=== PATIENT | male | born 1935 | race Hispanic/Latino ===

== ENCOUNTER → 2020-12-04 | Outpatient (CLI) | payer MEDICARE | LOC: RAD 16:21 | PROVIDERS: ATTEND Family Medicine | DX: M54.5 Low back pain (principal) | CPT/HCPCS: 72100 ==

== ENCOUNTER → 2024-02-18 | Day surgery (SDC) | payer MEDICARE ==
[2024-02-16 11:33] LABS: BASOPHILS % 0.2 % (0.0-1.0); EOSINOPHILS # (AUTO) 0.1 (0.0-0.4); HEMATOCRIT 31.8 % (38.2-49.6); HEMOGLOBIN 10.1 g/dL (14.0-18.0); LYMPHOCYTES # (AUTO) 1.5 (1.0-3.2); LYMPHOCYTES % 29.8 % (18.0-39.1); MEAN CORPUSCULAR HEMOGLOBIN 33.1 pg (28-32); MEAN CORPUSCULAR HGB CONC 31.8 g/dL (31-35); MEAN CORPUSCULAR VOLUME 104.3 fL (81-99); MONOCYTES # (AUTO) 0.5 (0.2-0.8); MONOCYTES % 9.2 % (4.4-11.3); NEUTROPHILS # (AUTO) 2.9 (2.1-6.9); NEUTROPHILS % 58.4 % (38.7-80.0); PLATELET COUNT 211 x10e3/uL (140-360); RED BLOOD COUNT 3.05 x10e6/uL (4.3-5.7); RED CELL DISTRIBUTION WIDTH 18.9 % (11.7-14.4)
[2024-02-16 11:45] LABS: INR 1.07; PROTHROMBIN TIME 14.5 seconds (11.9-14.5)
[2024-02-16 11:46] LABS: PARTIAL THROMBOPLASTIN TIME 31.3 seconds (23.8-35.5)
[2024-02-16 12:13] LABS: ANION GAP 13.1 mmol/L (8-16); CALCIUM 9.1 mg/dL (8.4-10.2); CREATININE, SERUM 1.54 mg/dL (0.72-1.25); POTASSIUM 4.1 mmol/L (3.5-5.1)
[~2024-02-18] MED LIST: ALENDRONATE SOD70 MG PO; ARICEPT10 MG PO; ASPIRIN81 MG PO; CALCIUM CARBON500 MG PO; COMBIVENT RESPIM4 GM IH; FLOMAX0.4 MG PO; LEVOTHYROXINE88 MCG PO; LIDOCAINE HCL 2% LOCAL INJ 5 ML SDV VIAL INJ ONE; MEMANTINE HCL5 MG PO; METOPROLOL TART25 MG PO; OLMESARTAN-HCT1 EACH PO; PROPOFOL IV EMULSION 10 MG/ML 20 ML VIAL ONE
[2024-02-18] MEDS: LACTATED RINGER'S 1,000 ML ONE (06:09)
[2024-02-18 07:16] VITALS: TEMP 98.4
[2024-02-18 07:30] VITALS: BP 126/77; PULSE 68; RESP 15; O2SAT 99
== END | disposition home or self-care (01) ==
LOC: OR 05:22
PROVIDERS: ATTEND Internal Medicine Gastroenterology
DX: R13.10 Dysphagia, unspecified (principal); K29.50 Unspecified chronic gastritis without bleeding; K44.9 Diaphragmatic hernia without obstruction or gangrene; K31.89 Other diseases of stomach and duodenum; R63.4 Abnormal weight loss; R62.7 Adult failure to thrive; I10 Essential (primary) hypertension; Z78.9 Other specified health status; E03.9 Hypothyroidism, unspecified; K21.9 Gastro-esophageal reflux disease without esophagitis; K76.89 Other specified diseases of liver; N28.9 Disorder of kidney and ureter, unspecified; F41.9 Anxiety disorder, unspecified; F03.90 Unspecified dementia, unspecified severity, without behavioral disturbance, psychotic disturbance, mood disturbance, and anxiety; Z01.810 Encounter for preprocedural cardiovascular examination; Z01.812 Encounter for preprocedural laboratory examination; Z79.82 Long term (current) use of aspirin; Z79.899 Other long term (current) drug therapy; Z95.818 Presence of other cardiac implants and grafts; Z83.719 Family history of colon polyps, unspecified
CPT/HCPCS: 36415; 43239; 43249; 80048; 85025; 85610; 85730; 88305; 88342; 93005; J2001; J2704; J7121; 43233